=== PATIENT | male | born 1985 | race Two or more races ===

== ENCOUNTER 2021-02-18 11:45 | Emergency (ER) | payer OTHER ==
[~2021-02-18] VITALS: Ht 185.4 cm; Wt 99.8 kg
[2021-02-18 14:03] VITALS: BP 126/95
[2021-02-18] MEDS ORDERED: ACETAMINOPHEN 500 MG TAB PO ONE ×2 (14:30→14:34)
[2021-02-18] MEDS ORDERED: cefTRIAXone SOD 1,000 MG VL IM ONE (14:30)
[2021-02-18] MEDS ORDERED: cefTRIAXone SOD 1,000 MG VL ONE (14:33)
== END 2021-02-18 15:14 | disposition home or self-care (01) ==
LOC: ER 11:45
DX: U07.1 COVID-19 (principal); M79.10 Myalgia, unspecified site; F17.210 Nicotine dependence, cigarettes, uncomplicated; R07.89 Other chest pain; Z88.8 Allergy status to other drugs, medicaments and biological substances
CPT/HCPCS: 36415; 71045; 87426; 93005; 96372; 99285; J0696

== ENCOUNTER 2021-02-21 03:34 | Emergency (ER) | payer OTHER ==
[~2021-02-21] VITALS: Ht 182.9 cm; Wt 99.8 kg
[2021-02-21 03:34] VITALS: BP 126/82
[2021-02-21] MEDS: ONDANSETRON ODT 4 MG TAB PO ONE ×2 (06:04→06:32)
== END 2021-02-21 08:56 | disposition home or self-care (01) ==
LOC: ER 03:34
DX: U07.1 COVID-19 (principal); M79.18 Myalgia, other site; R11.2 Nausea with vomiting, unspecified; F17.210 Nicotine dependence, cigarettes, uncomplicated
CPT/HCPCS: 36415; 71045; 74176; 87426; 99285; Q0162